=== PATIENT | female | born 1945 | race Caucasian/White ===

== ENCOUNTER 2017-04-04 12:41 | Outpatient (CLI) | payer OTHER | END 2017-04-04 20:48 | disposition home or self-care (01) | LOC: SMA 12:41 | PROVIDERS: ATTEND Family Medicine | DX: Z12.31 Encounter for screening mammogram for malignant neoplasm of breast (principal) | CPT/HCPCS: G0202 ==

== ENCOUNTER 2018-04-17 13:33 | Outpatient (CLI) | payer OTHER | END 2018-04-17 19:18 | disposition home or self-care (01) | LOC: SMA 13:33 | PROVIDERS: ATTEND Family Medicine | DX: Z12.31 Encounter for screening mammogram for malignant neoplasm of breast (principal) | CPT/HCPCS: 77067 ==

== ENCOUNTER 2019-01-29 12:50 | Outpatient (CLI) | payer OTHER | END 2019-01-30 07:58 | disposition home or self-care (01) | LOC: SMA 12:50 | PROVIDERS: ATTEND Family Medicine | DX: R92.1 Mammographic calcification found on diagnostic imaging of breast (principal) | CPT/HCPCS: 77065 ==

== ENCOUNTER 2020-01-08 13:30 | Outpatient (CLI) | payer OTHER | END 2020-01-08 20:20 | disposition home or self-care (01) | LOC: SMA 13:30 | PROVIDERS: ATTEND Family Medicine | DX: Z12.31 Encounter for screening mammogram for malignant neoplasm of breast (principal); N64.89 Other specified disorders of breast | CPT/HCPCS: 77067 ==

== ENCOUNTER 2022-11-03 15:34 | Outpatient (CLI) | payer OTHER | END 2022-11-03 19:03 | disposition home or self-care (01) | LOC: SRD 15:34 | PROVIDERS: ATTEND Physician Assistant | DX: R05.3 Chronic cough (principal); M54.9 Dorsalgia, unspecified; M41.84 Other forms of scoliosis, thoracic region | CPT/HCPCS: 71046-TC ==

== ENCOUNTER 2023-07-01 13:43 | Emergency (ER) | payer OTHER ==
[~2023-07-01] VITALS: Ht 149.9 cm; Wt 52.2 kg
[2023-07-01 14:00] VITALS: BP_SYST 185; PULSE 66; RESP 20; TEMP 98.6; O2SAT 95
[2023-07-01] MEDS ORDERED: NIRM1TAB PO (14:25)
[2023-07-01] MEDS ORDERED: NACL 0.9% 1,000 ML IV ONE (15:30)
[2023-07-01 16:19] LABS: BASOPHILS % (AUTO) 0.1 % (0.0-2.0); EOSINOPHILS % (AUTO) 0.1 % (0.0-4.0); HEMOGLOBIN 12.4 g/dL (12.0-16.0); LYMPHOCYTES % (AUTO) 15.4 % (20.5-51.5); MEAN CORPUSCULAR HEMOGLOBIN 30 pg (27-31); MEAN CORPUSCULAR HGB CONC 33 % (32-36); MEAN CORPUSCULAR VOLUME 90 fL (79.0-98.0); MONOCYTES # (AUTO) 0.5 K/uL (0.0-1.0); MONOCYTES % (AUTO) 7.4 % (1.7-9.3); PLATELET COUNT (AUTO) 242 K/uL (130-430); RED BLOOD CELL COUNT(AUTO) 4.11 MIL/uL (4.2-6.2); RED CELL DISTRIBUTION WIDTH 13.9 % (9.0-15.0); WHITE BLOOD COUNT (AUTO) 6.5 K/uL (4.8-10.8)
[2023-07-01 16:32] LABS: ANION GAP 13 (5-15); CALCIUM 8.9 mg/dL (8.4-11.0); CARBON DIOXIDE 23 mmol/L (23-29); CHLORIDE 102 mmol/L (98-107); CREATININE 0.71 mg/dL (0.55-1.30); GLUCOSE 95 mg/dL (74-106); POTASSIUM 3.2 mmol/L (3.5-5.1); SODIUM SERUM 138 mmol/L (136-145); UREA NITROGEN, BLOOD 17 mg/dL (8-21)
[2023-07-01 16:36] LABS: ALANINE AMINOTRANSFERASE 16 U/L (12-78); ALBUMIN 3.3 g/dL (3.4-4.8); ASPARTATE AMINOTRANSFERASE 23 U/L (10-37); LIPASE 99 U/L (73-393); TOTAL BILIRUBIN 0.3 mg/dL (0.0-1.0); TOTAL PROTEIN, SERUM 6.9 g/dL (6.4-8.3)
== END 2023-07-01 16:00 | disposition home or self-care (01) ==
LOC: SED 13:43
DX: Z00.00 Encounter for general adult medical examination without abnormal findings (principal); U07.1 COVID-19; R53.1 Weakness; R00.2 Palpitations; Z88.0 Allergy status to penicillin; Z79.899 Other long term (current) drug therapy
CPT/HCPCS: 36415; 71045; 76376; 80053; 83690; 85025; 99284